=== PATIENT | male | born 1970 | race Caucasian/White ===

== ENCOUNTER 2016-05-03 01:37 | Emergency (ER) | payer SELFPAY ==
[~2016-05-03] VITALS: Wt 70.0 kg
[~2016-05-03 01:37] MED LIST: ALBE200T PO; HC20CR25 TOP; KENC1 TOP
== END 2016-05-03 10:27 | disposition left against medical advice (07) ==
LOC: E/R 01:37
DX: Z53.21 Procedure and treatment not carried out due to patient leaving prior to being seen by health care provider (principal)

== ENCOUNTER 2018-09-21 02:56 | Emergency (ER) | payer OTHER ==
[~2018-09-21] VITALS: Ht 165.1 cm; Wt 75.6 kg
[~2018-09-21 02:56] MED LIST changes: -KENC1 TOP; +TRIA15CR55 TOP
[2018-09-21 03:02] VITALS: Ht 165.1 cm; Wt 75.6 kg
[2018-09-21] MEDS ORDERED: BENZ200C68 PO (03:39)
--- NOTE | 2018-09-21 03:39 | ERD ---
ER Documentation Chief Complaint Chief Complaint sore throat; fever HPI 48-year-old male with past medical history of HIV presenting to the emergency department with complaints of intermittent sore throat and cough for the past 3 days. Symptoms are mild in severity. He has been taking medication prescribed by his primary care doctor with some relief. He denies any other symptoms currently. ROS All systems reviewed and are negative except as per history of present illness. Medications Home Meds Active Scripts Benzonatate* (Benzonatate*) 200 Mg Capsule, 200 MG PO TID PRN for COUGH, #15 CAP Prov:DICK SLATER PA-C 09/21/18 Albendazole* (Albenza*) 200 Mg Tab, 400 MG PO BID for 3 Days, TAB Prov:SVETLANA BRO PA-C 03/01/16 Hydrocortisone* Topical (Hydrocortisone* Topical) 2.5%-20 Gm Cream..g., 1 APPLIC TOP BID for 30 Days, #2 TUB Prov:SVETLANA BRO PA-C 03/01/16 Triamcinolone Acetonide (Triamcinolone Acetonide) 0.1% - 15 Gm Cream.gm., 1 APPLIC TOP BID, #1 TUB Prov:SVETLANA BRO PA-C 03/01/16 Allergies Allergies: Coded Allergies: No Known Allergy (Unverified , 12/28/15) PMhx/Soc History of Surgery: Yes (HERNIA) Anesthesia Reaction: No Hx Neurological Disorder: No Hx Respiratory Disorders: No Hx Cardiac Disorders: No Hx Psychiatric Problems: No Hx Miscellaneous Medical Probl: Yes (SYPHILLIS, HIV) Hx Alcohol Use: Yes Hx Substance Use: Yes (crystal meth) Hx Tobacco Use: Yes Physical Exam Vitals Vital Signs Date Temp Pulse Resp B/P (MAP) Pulse Ox O2 O2 Flow FiO2 Time Delivery Rate 09/21/18 97.8 82 18 123/75 95 04:00 (91) 09/21/18 98.0 86 21 137/83 98 03:02 (101) Physical Exam Const: No acute distress Head: Atraumatic Eyes: Normal Conjunctiva ENT: Normal External Ears, Nose and Mouth. Neck: Full range of motion. No meningismus. Resp: Clear to auscultation bilaterally Cardio: Regular rate and rhythm, no murmurs Abd: Soft, non tender, non distended. Normal bowel sounds Skin: No petechiae or rashes Back: No midline or flank tenderness Ext: No cyanosis, or edema Neur: Awake and alert Psych: Normal Mood and Affect Procedures/MDM The patient's clinical presentation is very consistent with an acute viral syndrome. The patient does not exhibit any clinical signs or symptoms concerning for se rious bacterial infection or systemic illness. Based on history and clinical exam findings the patient does not appear to have evidence of pneumonia, strep pharyngitis, urinary tract infection, bacteremia, sepsis, or meningitis. For these reasons I do not believe it is necessary to obtain laboratory testing or diagnostic imaging. I believe it would be appropriate for symptom control, and close outpatient primary care follow-up. Based on patient's history of present illness and physical examination the dec ision was made to discharge. There is no evidence of life threatening injuries or illnesses at this time. On re-examination, patient resting in no distress, stable vital signs, reports feeling better and safe for discharge with outpatient follow up with PMD in 1-2 days. Patient given return precautions. Departure Diagnosis: Primary Impression: Sore throat Condition: Fair Patient Instructions: Self-Care for Sore Throats [facility] Usted se kidd hecho un examen mdico de control que le indica que no est en eulogio condicin que requiera tratamiento urgente en el Departamento de Emergencia. Un estudio ms profundo y el tratamiento de nance condicin pueden esperar sin ningn riesgo hasta que usted sea atendida/o en el consultorio de nance mdico o eulogio clnica. Es responsabilidad suya arreglar eulogio kalyan para el seguimiento del gretel. MANEJO DE CONDICIONES NO URGENTES EN EL FUTURO 1) Si usted tiene un mdico de atencin primaria: Usted debera llamar a nance mdico de atencin primaria antes de venir al departamento de emergencia. Despus de las horas de consultorio, nance doctor o nance asociado/a est disponible por telfono. El mdico o enfermero de kyaw en el servicio telefnico puede asesorarle por nomi medio para atender el problema, o gretel contrario se puede programar eulogio kalyan. 2) Si usted no tiene un mdico de atencin primaria: Llame al mdico o clnica de referencia que aparece abajo rocky las horas de consultorio para hacer eulogio kalyan para que le vean. CLINICAS: [facility] [phone] [facility] [phone] [facility] [phone] [place] [id number] [phone] [facility] [phone] [address] [facility]. [phone] [address] Additional Instructions: Llame al doctor MAANA y maddie eulogio KALYAN PARA DENTRO DE 1-2 SALAMANCA.Dgale a la secretaria que nosotros le instruimos hacer esta kalyan.Avise o llame si nance condicin se empeora antes de la kalyan. Regresa aqui si peor o no mejor. DICK SLATER PA-C Sep 21, 2018 03:38
[2018-09-21 04:00] VITALS: BP 123/75; PULSE 82; RESP 18
== END 2018-09-21 04:03 | disposition home or self-care (01) ==
LOC: FTE 02:56
DX: J02.9 Acute pharyngitis, unspecified (principal); Z21 Asymptomatic human immunodeficiency virus [HIV] infection status; Z87.891 Personal history of nicotine dependence
CPT/HCPCS: 99282

== ENCOUNTER 2018-10-16 05:20 | Emergency (ER) | payer SELFPAY ==
[~2018-10-16 05:20] MED LIST changes: +BENZ200C68 PO
== END 2018-10-16 05:45 | disposition left against medical advice (07) ==
LOC: E/R 05:20
DX: Z53.21 Procedure and treatment not carried out due to patient leaving prior to being seen by health care provider (principal)